=== PATIENT | female | born 2000 | race Caucasian/White ===

== ENCOUNTER 2020-02-25 22:11 | Emergency (ER) | payer MEDICAID, OTHER ==
[~2020-02-25] VITALS: Ht 172.7 cm; Wt 58.6 kg
--- NOTE | 2020-02-25 22:12 | NUR ---
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 PT. TO BE SEEN IN ED. L&D RN TO COME DOWN FOR FHT.
--- NOTE | 2020-02-25 22:23 | NUR ---
INITIAL PT CONTACT. PT PRESENTS TO THE ED FOR DECREASED MOVEMENT TODAY, NO BLEEDING BUT IS CRAMPING. APPROX 18 WEEKS . 2ND . PT SITTING UPRIGHT ON GURNEY, FITO, VSS. FRIEND AT BEDSIDE. CALL LIGHT AND BELONGINGS WITHIN REACH. WARM BLANKET PROVIDED.
--- NOTE | 2020-02-25 22:27 | NUR ---
L&D NURSE AT BEDSIDE
--- NOTE | 2020-02-25 22:29 | NUR ---
ERP AT BEDSIDE.
[2020-02-25 22:40] VITALS: BP 121/79
--- NOTE | 2020-02-25 23:01 | NUR ---
Patient given discharge instructions and they have confirmed that they understand the instructions. Patient ambulatory with steady gait.
== END 2020-02-25 23:06 | disposition home or self-care (01) ==
LOC: ED 22:45
DX: O26.892 Other specified pregnancy related conditions, second trimester (principal); R41.82 Altered mental status, unspecified; R10.2 Pelvic and perineal pain; F17.210 Nicotine dependence, cigarettes, uncomplicated; Z3A.19 19 weeks gestation of pregnancy
CPT/HCPCS: 99284